=== PATIENT | female | born 1965 | race Caucasian/White ===

== ENCOUNTER 2016-11-25 13:03 | Emergency (ER) | payer BC ==
[~2016-11-25] VITALS: Ht 162.6 cm; Wt 80.7 kg
[~2016-11-25 13:03] MED LIST: ASPI81TA28 PO
[2016-11-25 13:06] VITALS: TEMP 36.7; Ht 162.6 cm; Wt 80.7 kg
[2016-11-25] MEDS ORDERED: LORA-741 PO (13:31)
[2016-11-25] MEDS ORDERED: SUCR1TAB29 PO (13:31)
[2016-11-25] MEDS ORDERED: PRLSR20 PO (13:31)
[2016-11-25 13:35] VITALS: O2SAT 97
[2016-11-25 13:49] LABS: BASO % 0.4 %; BASO ABS # 0.03 K/uL (0-0.2); COMPLETE YES; HEMATOCRIT 44.8 % (37-47); IG% 0.1 %; LYMPH % 21.8 %; LYMPH ABS # 1.58 K/uL (1.2-3.4); MEAN CELL VOLUME 85.5 fL (80-100); MEAN CORPUSCULAR HEMOGLOBIN 30.5 pg (25-34); MEAN CORPUSCULAR HGB CONC 35.7 g/dl (32-36); MONO % 4.8 %; NEUT % 69.9 %; PLATELET COUNT 239 K/uL (130-400); RED BLOOD COUNT 5.24 M/uL (4.2-5.4); WHITE BLOOD COUNT 7.26 K/uL (4.8-10.8)
--- NOTE | 2016-11-25 14:01 | DIAGNOSTIC IMAGING REPORT ---
CHEST ONE VIEW PORTABLE CLINICAL HISTORY: Chest pain. COMPARISON STUDY: Chest radiograph September 25, 2015. FINDINGS: Lung volumes are normal. There is no pneumothorax or pleural effusion. There is no consolidation to suggest pneumonia. Pulmonary vascularity is normal. Cardiomediastinal silhouette is normal. IMPRESSION: No acute cardiopulmonary findings. Electronically signed by: Wang Nascimento M.D. 11/25/2016 1:59 PM Dictated Date/Time: 11/25/2016 1:59 PM
[2016-11-25 14:06] LABS: ALT/SGPT 20 U/L (12-78); AST/SGOT 10 U/L (15-37); BLOOD UREA NITROGEN 13 mg/dl (7-18); BUN/CREATININE RATIO 16.6 (10-20); CALCIUM 9.1 mg/dl (8.5-10.1); CARBON DIOXIDE 25 mmol/L (21-32); CHLORIDE 110 mmol/L (98-107); CREATININE 0.81 mg/dl (0.60-1.20); GLUCOSE 99 mg/dl (70-99); POTASSIUM 3.6 mmol/L (3.5-5.1); SODIUM 143 mmol/L (136-145)
[2016-11-25 14:11] LABS: ALB/GLOB RATIO 1.3 (0.9-2); ALKALINE PHOSPHATASE 68 U/L (45-117)
--- NOTE | 2016-11-25 14:25 | EMERGENCY ROOM VISIT NOTE ---
History First contact with patient: 13:23 Chief Complaint: CHEST PAIN Stated Complaint: CHEST PAIN Nursing Triage Summary: Patient c/o mid sternal chest pain that she has had intermittently for 1 year. Denies pain at this time, has been treated for acid reflux but continues to have the pain. Pt states today she didn't have the "full pressure that I get. It just kind of grabbed me at 9 o'clock but it didn't last real long and it went into my back". Denies SOB, diaphoresis, but states sometimes she gets sweaty in the middle of the night with chest pain and occasionally is SOB but not linked to the chest pain. Pt denies taking anything for chest pain. History of Present Illness The patient is a 51 year old female who presents to the Emergency Room with complaints of intermittent chest pain for the past 1.5 years. The patient states that she has had a long history of occasional chest pain. She states the pain typically occurs at rest or at night and can last for a few minutes to a few hours. The pain is located in the center of her chest and feels like a pressure. The patient states that she had an episode of pain last night and had associated sweating with the pain. She reports that in the morning, she tends to feel weak. The patient was seen here one year ago for these symptoms and followed up with cardiology. She reports she had a stress test which was negative but did show increased heart rate with exercise. She was supposed to follow-up with cardiology but states that she canceled that appointment. She states that she has not seen her primary care provider, who has started her on medications for acid reflux. She has been taking these as prescribed but states there has been no change in her symptoms. The patient denies any symptoms at this time. She does report she has occasional palpitations at times. She has had a Holter monitor in 2005 which showed PACs but no other arrhythmias. She denies any shortness of breath, nausea, vomiting, radiation of the pain or syncopal episodes. She has a family history of heart disease, but not at a young age. She is a smoker. She denies history of hypertension or hyperlipidemia. Review of Systems A complete 10-point Review of Systems was discussed with the patient, with pertinent positives and negatives listed in the History of Present Illness. All remaining Review of Systems questions can be considered negative unless otherwise specified. Past Medical/Surgical History Surgical Problems: (1) Hx of tonsillectomy (2) Previous section Family History Cancer Diabetes mellitus Heart disease Hypertension Lung disease Social History Smoking Status: Never Smoker Alcohol Use: none Drug Use: none Marital Status: Housing Status: lives with family Occupation Status: unemployed Current/Historical Medications Scheduled Lorazepam (Ativan), 0.5 MG PO HS Omeprazole (Prilosec), 20 MG PO ACHS Sucralfate (Carafate), 1 GM PO HS Allergies Coded Allergies: Penicillins (Verified Allergy, Unknown, 11/25/16) Physical Exam Vital Signs Date Time Temp Pulse Resp B/P Pulse Ox O2 Delivery O2 Flow Rate FiO2 11/25/16 14:59 78 16 122/88 98 11/25/16 13:35 97 Room Air 11/25/16 13:23 70 11/25/16 13:11 98 11/25/16 13:06 36.7 78 17 139/88 99 Room Air Physical Exam VITALS: Vitals are noted on the nurse's note and reviewed by myself. Vital signs stable. GENERAL: This is a 51-year-old female, in no acute distress, nondiaphoretic, well-developed well-nourished. SKIN: Capillary reflex less than 2 seconds. HEENT: Normocephalic. PERRLA. EOMI. Nares patent. Mucous membranes moist. Neck is supple without nuchal rigidity. HEART: Regular rate and rhythm without murmurs gallops or rubs. LUNGS: Clear to auscultation bilaterally without wheezes, rales or rhonchi. NEURO: Patient was alert and oriented to person place and time. Medical Decision & Procedures ER Provider Diagnostic Interpretation: CHEST ONE VIEW PORTABLE CLINICAL HISTORY: Chest pain. COMPARISON STUDY: Chest radiograph September 25, 2015. FINDINGS: Lung volumes are normal. There is no pneumothorax or pleural effusion. There is no consolidation to suggest pneumonia. Pulmonary vascularity is normal. Cardiomediastinal silhouette is normal. IMPRESSION: No acute cardiopulmonary findings. Laboratory Results 11/25/16 13:30 Red Blood Count 5.24, Mean Corpuscular Volume 85.5, Mean Corpuscular Hemoglobin 30.5, Mean Corpuscular Hemoglobin Concent 35.7, Mean Platelet Volume 11.0, Neutrophils (%) (Auto) 69.9, Lymphocytes (%) (Auto) 21.8, Monocytes (%) (Auto) 4.8, Eosinophils (%) (Auto) 3.0, Basophils (%) (Auto) 0.4, Neutrophils # (Auto) 5.07, Lymphocytes # (Auto) 1.58, Monocytes # (Auto) 0.35, Eosinophils # (Auto) 0.22, Basophils # (Auto) 0.03 11/25/16 13:30 Test 11/25/16 13:30 White Blood Count 7.26 K/uL (4.8-10.8) Red Blood Count 5.24 M/uL (4.2-5.4) Hemoglobin 16.0 g/dL (12.0-16.0) Hematocrit 44.8 % (37-47) Mean Corpuscular Volume 85.5 fL (80-100) Mean Corpuscular Hemoglobin 30.5 pg (25-34) Mean Corpuscular Hemoglobin Concent 35.7 g/dl (32-36) Platelet Count 239 K/uL (130-400) Mean Platelet Volume 11.0 fL (7.4-10.4) Neutrophils (%) (Auto) 69.9 % Lymphocytes (%) (Auto) 21.8 % Monocytes (%) (Auto) 4.8 % Eosinophils (%) (Auto) 3.0 % Basophils (%) (Auto) 0.4 % Neutrophils # (Auto) 5.07 K/uL (1.4-6.5) Lymphocytes # (Auto) 1.58 K/uL (1.2-3.4) Monocytes # (Auto) 0.35 K/uL (0.11-0.59) Eosinophils # (Auto) 0.22 K/uL (0-0.5) Basophils # (Auto) 0.03 K/uL (0-0.2) RDW Standard Deviation 40.7 fL (36.4-46.3) RDW Coefficient of Variation 12.9 % (11.5-14.5) Immature Granulocyte % (Auto) 0.1 % Immature Granulocyte # (Auto) 0.01 K/uL (0.00-0.02) Anion Gap 8.0 mmol/L (3-11) Est Creatinine Clear Calc Drug Dose 85.4 ml/min Estimated GFR () 98.2 Estimated GFR (Non- 84.7 BUN/Creatinine Ratio 16.6 (10-20) Calcium Level 9.1 mg/dl (8.5-10.1) Total Bilirubin 0.4 mg/dl (0.2-1) Aspartate Amino Transf (AST/SGOT) 10 U/L (15-37) Alanine Aminotransferase (ALT/SGPT) 20 U/L (12-78) Alkaline Phosphatase 68 U/L (45-117) Total Creatine Kinase 71 U/L (26-192) Creatine Kinase MB < 0.5 ng/ml (0.5-3.6) Creatine Kinase MB Ratio (0-3.0) Troponin I < 0.015 ng/ml (0-0.045) Total Protein 7.5 gm/dl (6.4-8.2) Albumin 4.2 gm/dl (3.4-5.0) Globulin 3.3 gm/dl (2.5-4.0) Albumin/Globulin Ratio 1.3 (0.9-2) ECG Indication: chest pain Rate (beats per minute): 71 Rhythm: normal sinus Findings: T-wave inversion (Lateral), no acute ischemic change, no ectopy Change: no significant change Medical Decision Differential diagnosis includes acute coronary syndrome, pulmonary embolism, pneumothorax, pericarditis, myocarditis, endocarditis, anxiety, musculoskeletal pain, GERD, costochondritis, pneumonia, among others. The patient was evaluated as above. Labs were drawn and IV access was obtained. Imaging studies were performed and read by radiology as above. The patient remained on the lunchroom monitor throughout the duration of her stay. The patient is a 51-year-old female who presents today complaining of chest pain of greater than one year duration. I did review previous records. The patient was previously seen here for similar symptoms and had follow-up including stress test since then. She was supposed to follow-up with cardiology but canceled that appointment. Labs today revealed no leukocytosis, anemia or concerning electrolyte abnormality. Troponin 1 was negative. I did not repeat a troponin given the long duration of the patient's symptoms. EKG was interpreted by myself and showed a normal sinus rhythm without evidence of ischemia. Overall, the patient's history is not significantly concerning for cardiac disease. She is symptom-free at the time of my evaluation. I did recommend she continue to follow-up with her primary care provider and schedule another follow-up with her established diamond sander. She will return here for any new/concerning symptoms. Based on the patient's presentation, lab results, and imaging studies, I feel the patient is stable for outpatient treatment. The patient's case was reviewed with Dr. Shay, ED attending physician, who agreed with my assessment and treatment plan. Discharge instructions were reviewed with the patient. The patient verbalized understanding of my assessment and treatment plan and was discharged home in good condition. Impression Primary Impression: Substernal chest pain Departure Information Dispostion Home / Self-Care Condition GOOD Referrals Tere Nur M.D. (MEDICAL) (PCP) Isai Cabral D.O. Patient Instructions [facility] Additional Instructions You have been treated in the Emergency Department for your Chest Pain. Laboratory results and Imaging Studies have ruled out any acute cardiac or pulmonary cause of your chest pain. For pain control, you can use the following [id number] medicines (if >12 yo): - Regular strength (325mg/tab) Tylenol (acetaminophen) 2 tabs every 4-6 hours as needed. Do not exceed 12 tablets in a 24 hour period. Avoid taking more than 4 grams (4000 mg) of Tylenol per day. This includes any other sources of acetaminophen you may take on a regular basis. - Regular strength (200 mg/tab) Advil (ibuprofen) 1-2 tabs every 4-6 hours as needed. Do not exceed a dose of 3200 mg per day. You should schedule a follow-up appointment with your Primary Care Provider in 2 -3 days for further evaluation from today's Emergency Department visit. Call your diamond sander to schedule an appointment this week for follow-up. Return to the Emergency Department if your current symptoms worsen despite treatment course outlined above, or if you develop any of the following symptoms : worsening chest pain, associated jaw/arm pain, nausea, dizziness, shortness of breath, bloody cough, or fainting.
[2016-11-25 14:59] VITALS: BP 122/88; PULSE 78; O2SAT 98
== END 2016-11-25 15:00 | disposition home or self-care (01) ==
LOC: C.EDB 13:04 → C.EDC 15:00
DX: R07.2 Precordial pain (principal); K21.9 Gastro-esophageal reflux disease without esophagitis; Z79.899 Other long term (current) drug therapy; Z80.9 Family history of malignant neoplasm, unspecified; Z83.3 Family history of diabetes mellitus; Z82.49 Family history of ischemic heart disease and other diseases of the circulatory system; Z83.6 Family history of other diseases of the respiratory system

== ENCOUNTER 2017-01-29 06:48 | Emergency (ER) | payer BC ==
[~2017-01-29] VITALS: Ht 162.6 cm; Wt 83.9 kg
[~2017-01-29 06:48] MED LIST changes: -ASPI81TA28 PO; +LORA-741 PO; +PRLSR20 PO; +SUCR1TAB29 PO
[2017-01-29 06:51] VITALS: TEMP 36.6; Ht 162.6 cm; Wt 83.9 kg
[2017-01-29] MEDS ORDERED: MoRPHine SULFATE 4 MG/ML 1 ML CARP\\VIAL IV PRN (07:15)
[2017-01-29 07:25] VITALS: O2SAT 96
--- NOTE | 2017-01-29 07:32 | EMERGENCY ROOM VISIT NOTE ---
History First contact with patient: 07:01 Chief Complaint: CHEST PAIN Stated Complaint: BACK PAIN Nursing Triage Summary: chest pain on off for 1 1/2 yr being treated for gerd. Pain has kept her up for 4 nites. History of Present Illness The patient is a 51 year old female who presents to the Emergency Room with complaints of midsternal chest pain that started about midnight last night. Patient states the pain woke her up from sleep and has been constant since that time. She describes the pain as pressure with occasional sharp pains, midsternal, does not radiate, no exacerbating factors and it is not exertional, currently rates it as 4/10. She took 2 baby aspirin when the pain started. Associated symptoms of nausea, she denies vomiting, shortness of breath, dizziness, diaphoresis, racing heart, syncope. Patient notes that she has been dealing with this chest pain on and off for the past 1.5 years. The patient notes a stress test a year ago that she believes was negative. She has also had an endoscopy in June 2016 that she also believes was negative. She reports an cardiac CT that was done in November ordered by her olive packer Dr. Cabral that she says was negative, and has since been placed on a PPI and Carafate treatment for GERD, however she does not note any significant improvement in her symptoms since starting these medications. Of note, she was also started on PRN Ativan She denies any headaches, vision changes, neck pain, abdominal pain, diarrhea/constipation, or urinary symptoms. She does note that she quit smoking about 6 weeks ago. Review of Systems GENERAL: Denies fevers, chills, malaise, fatigue, unintentional weight changes. HEENT: Denies dizziness, visual problems, hearing loss, tinnitus. Denies difficulty swallowing or oral lesions. PULMONARY: Denies cough, shortness of breath, sputum production or hemoptysis. CARDIOVASCULAR: + Chest pain. Denies palpitations, dyspnea on exertion, orthopnea or peripheral edema. Denies syncope. Denies history of hypertension. GASTROINTESTINAL: + Nausea. Denies diarrhea, constipation, vomiting, or abdominal pain. GENITOURINARY: Denies dysuria, frequency, urgency or nocturia. NEUROLOGIC: Denies history of epilepsy, CVA, TIA or chronic headaches. MUSCULOSKELETAL: Denies history of joint tenderness/swelling. SKIN: Denies rashes or lesions. PSYCHIATRIC: Denies history of depression or mental illness. ENDOCRINE: Denies history of diabetes, thyroid disorders, abnormal hair growth or sexual dysfunction. Past Medical/Surgical History Surgical Problems: (1) Hx of tonsillectomy (2) Previous section Family History Cancer Diabetes mellitus Heart disease Hypertension Lung disease Social History Smoking Status: Former Smoker Alcohol Use: none Drug Use: none Marital Status: Housing Status: lives with family Occupation Status: unemployed Current/Historical Medications Scheduled Lorazepam (Ativan), 0.5 MG PO HS Omeprazole (Prilosec), 20 MG PO ACHS Sucralfate (Carafate), 1 GM PO HS Allergies Coded Allergies: Penicillins (Verified Allergy, Unknown, 11/25/16) Physical Exam Vital Signs Date Time Temp Pulse Resp B/P (MAP) Pulse Ox O2 Delivery O2 Flow Rate FiO2 01/29/17 10:40 67 16 130/81 95 01/29/17 09:56 64 01/29/17 09:12 60 16 125/78 96 Room Air 01/29/17 08:18 64 16 114/75 98 Room Air 01/29/17 07:37 71 16 139/86 98 Room Air 01/29/17 07:25 96 Room Air 01/29/17 07:25 65 16 171/96 96 Room Air 01/29/17 07:24 96 Room Air 01/29/17 07:04 68 01/29/17 06:51 36.6 66 16 140/92 97 Room Air Physical Exam CONSTITUTIONAL: No acute distress. Well appearing and well nourished. Alert and oriented X 4 with normal affect. HEENT: Normocephalic, atraumatic. Pupils equal, round and reactive to light, EOMI. TMs normal. Pharynx normal. Moist mucous membranes. NECK: Supple, full active range of motion without discomfort. RESPIRATORY: Clear to auscultation bilaterally with no wheezing, crackles, rhonchi or stridor. Equal expansion bilaterally. CARDIOVASCULAR: Regular rate and rhythm with no murmurs, rubs or gallops. Normal peripheral perfusion, 2+ pulses all 4 extremities. No edema. CHEST WALL: Normal contour, nontender to palpation, chest pain is not reproducible. No crepitus, no ecchymosis or abrasion, no rash. GASTROINTESTINAL: Soft, nontender, nondistended. Bowel sounds present in all quadrants. MUSCULOSKELETAL: Full range of motion of all joints without discomfort. INTEGUMENTARY: No rash or other significant dermatologic conditions noted. NEUROLOGIC: Cranial nerves II-XII grossly intact. No focal neurologic deficits noted. Medical Decision & Procedures ER Provider Diagnostic Interpretation: TWO VIEW CHEST CLINICAL HISTORY: Atypical chest pain.. FINDINGS: PA and lateral chest radiographs are compared to study dated 11/25/2016. The cardiomediastinal silhouette is unremarkable. The lungs and pleural spaces are clear. There is no pneumothorax. The bony thorax appears intact. IMPRESSION: No active disease in the chest. Laboratory Results 01/29/17 07:20 Red Blood Count 5.07, Mean Corpuscular Volume 85.8, Mean Corpuscular Hemoglobin 30.2, Mean Corpuscular Hemoglobin Concent 35.2, Mean Platelet Volume 10.3, Neutrophils (%) (Auto) 66.9, Lymphocytes (%) (Auto) 20.9, Monocytes (%) (Auto) 9.0, Eosinophils (%) (Auto) 2.7, Basophils (%) (Auto) 0.5, Neutrophils # (Auto) 3.65, Lymphocytes # (Auto) 1.14, Monocytes # (Auto) 0.49, Eosinophils # (Auto) 0.15, Basophils # (Auto) 0.03 01/29/17 07:20 Test 01/29/17 07:20 01/29/17 09:10 White Blood Count 5.46 K/uL (4.8-10.8) Red Blood Count 5.07 M/uL (4.2-5.4) Hemoglobin 15.3 g/dL (12.0-16.0) Hematocrit 43.5 % (37-47) Mean Corpuscular Volume 85.8 fL (80-100) Mean Corpuscular Hemoglobin 30.2 pg (25-34) Mean Corpuscular Hemoglobin Concent 35.2 g/dl (32-36) Platelet Count 229 K/uL (130-400) Mean Platelet Volume 10.3 fL (7.4-10.4) Neutrophils (%) (Auto) 66.9 % Lymphocytes (%) (Auto) 20.9 % Monocytes (%) (Auto) 9.0 % Eosinophils (%) (Auto) 2.7 % Basophils (%) (Auto) 0.5 % Neutrophils # (Auto) 3.65 K/uL (1.4-6.5) Lymphocytes # (Auto) 1.14 K/uL (1.2-3.4) Monocytes # (Auto) 0.49 K/uL (0.11-0.59) Eosinophils # (Auto) 0.15 K/uL (0-0.5) Basophils # (Auto) 0.03 K/uL (0-0.2) RDW Standard Deviation 39.2 fL (36.4-46.3) RDW Coefficient of Variation 12.4 % (11.5-14.5) Immature Granulocyte % (Auto) 0.0 % Immature Granulocyte # (Auto) 0.00 K/uL (0.00-0.02) Bedside Urine Test NEG (NEG) Anion Gap 7.0 mmol/L (3-11) Est Creatinine Clear Calc Drug Dose 94.1 ml/min Estimated GFR () 107.7 Estimated GFR (Non- 92.9 BUN/Creatinine Ratio 17.4 (10-20) Calcium Level 9.2 mg/dl (8.5-10.1) Total Bilirubin 0.5 mg/dl (0.2-1) Direct Bilirubin 0.1 mg/dl (0-0.2) Aspartate Amino Transf (AST/SGOT) 11 U/L (15-37) Alanine Aminotransferase (ALT/SGPT) 19 U/L (12-78) Alkaline Phosphatase 72 U/L (45-117) Total Protein 7.5 gm/dl (6.4-8.2) Albumin 4.1 gm/dl (3.4-5.0) Lipase 242 U/L (73-393) Bedside Troponin I < 0.030 ng/ml (0-0.045) Medications Administered Medications (Trade) Dose Ordered Sig/Guerda Route Start Time Stop Time Status Last Admin Dose Admin Morphine Sulfate (MoRPHine SULFATE INJ) 4 mg Q1H PRN IV 01/29/17 07:15 01/29/17 11:05 DC 01/29/17 07:32 4 MG Ondansetron HCl (Zofran Inj) 4 mg NOW STAT IV 01/29/17 07:39 01/29/17 07:40 DC 01/29/17 07:42 4 MG ECG Indication: chest pain Rate (beats per minute): 64 Rhythm: normal sinus Findings: nonspecific-ST abn (Inferior), no acute ischemic change, no ectopy Change: no significant change (11/25/2016) Medical Decision CC: Patient presenting with complaint of chest pain Interpretation of Labs: No leukocytosis, no anemia, no significant electrolyte abnormalities, normal renal function, normal liver enzymes. Negative troponin 2 at greater than 6 hours of constant chest pain. Differential Diagnosis: Includes, but not limited to acute coronary syndrome, pulmonary embolism, aortic dissection, pneumothorax, pericarditis, myocarditis, endocarditis, anxiety, musculoskeletal pain, GERD, costochondritis, pneumonia, among others. Medication Reconciliation: I attest that I have personally reviewed the patient' s current medication list. Vital signs review: I reviewed the patient's vital signs and interpret them as follows: T: Afebrile; BP: Hypertensive; HR: Within normal limits; RR: Within normal limits; Pulse Ox: Within normal limits on room air. Blood pressure screening: The patient was found to have an elevated blood pressure and was referred to their primary doctor for recheck and further treatment. Summary: Patient was evaluated at bedside, history of physical exam performed. She is alert and oriented in no acute distress. She relates constant chest pain since 12 AM with no resolution, currently 01/31. Heart and lung exam are unremarkable, no edema. I do not suspect PE. Very low risk by Wells criteria (unable to PERC out due to age). EKG reviewed at bedside, normal sinus rhythm with no acute ischemic changes, and unchanged when compared to previous EKG. Orders were placed at bedside for labs, UA, chest x-ray, EKG to evaluate for chest pain. Patient discussed with Dr. Arciniega, who agrees with my assessment and plan. I did request records from patient's olive packer, Dr. Cabral, along with recent coronary CT results. Review of records was performed, noting and negative CT coronary study on 2016. It does appear from review of her PCP and olive packer notes that her symptoms are more consistent with acid reflux/indigestion, and she has recently been placed on medications to treat this. Labs reviewed, unremarkable as noted above, specifically negative troponin studies to rule out ACS. Chest x-ray reviewed, unremarkable. Patient's pain resolved with medication. Patient reassessed multiple times throughout ED stay, she is much improved. She does note some persistent nausea with belching at times. I reviewed all results with patient and her , as well as discussed her previous records and need for her to continue following up. I do suspect the patient's symptoms are secondary to acid reflux issues. Patient does note that she is scheduled to see a fill plant operator in a few weeks. I urged her to keep this appointment. Patient was discharged home in stable condition and ambulatory. Impression Primary Impression: Chest pain Departure Information Dispostion Home / Self-Care Condition GOOD Referrals Tere Nur M.D. (MEDICAL) (PCP) Patient Instructions ED Chest Pain NonCardiac, [facility] Additional Instructions Continue to take your medications to treat your reflux. You may take Maalox or Mylanta as needed for symptoms of chest pain that may be caused by reflux. Keep your scheduled appointment with the fill plant operator in the upcoming weeks. Plan to follow-up with your PCP in the next few days for recheck. You should have your blood pressure rechecked, as it was elevated while you were in the ER today. Please return to the ER for worsening symptoms, including severe worsening or different type of chest pain, shortness of breath, persistent vomiting or vomiting up blood, blood in her stool or urine, severe dizziness or passing out , or any other concerns. Problem Qualifiers Primary Impression: Chest pain Chest pain type: other chest pain Qualified Codes: R07.89 - Other chest pain
[2017-01-29 07:33] LABS: BASO % 0.5 %; BASO ABS # 0.03 K/uL (0-0.2); COMPLETE YES; EOS % 2.7 %; HEMATOCRIT 43.5 % (37-47); LYMPH % 20.9 %; LYMPH ABS # 1.14 K/uL (1.2-3.4); MEAN CELL VOLUME 85.8 fL (80-100); MEAN CORPUSCULAR HEMOGLOBIN 30.2 pg (25-34); MEAN CORPUSCULAR HGB CONC 35.2 g/dl (32-36); MEAN PLATELET VOLUME 10.3 fL (7.4-10.4); NEUT % 66.9 %; PLATELET COUNT 229 K/uL (130-400); RED BLOOD COUNT 5.07 M/uL (4.2-5.4); WHITE BLOOD COUNT 5.46 K/uL (4.8-10.8)
[2017-01-29] MEDS ORDERED: ONDANSETRON INJ 2 MG/ML 2 ML VIAL IV STA (07:39)
[2017-01-29 07:49] LABS: BUN/CREATININE RATIO 17.4 (10-20); CALCIUM 9.2 mg/dl (8.5-10.1); CREATININE 0.75 mg/dl (0.60-1.20); POTASSIUM 3.5 mmol/L (3.5-5.1)
--- NOTE | 2017-01-29 08:06 | DIAGNOSTIC IMAGING REPORT ---
TWO VIEW CHEST CLINICAL HISTORY: Atypical chest pain.. FINDINGS: PA and lateral chest radiographs are compared to study dated 11/25/2016. The cardiomediastinal silhouette is unremarkable. The lungs and pleural spaces are clear. There is no pneumothorax. The bony thorax appears intact. IMPRESSION: No active disease in the chest. Electronically signed by: Geremias Mistry M.D. 01/29/2017 8:04 AM Dictated Date/Time: 01/29/2017 8:04 AM
[2017-01-29 10:40] VITALS: BP 130/81; PULSE 67; O2SAT 95
== END 2017-01-29 10:13 | disposition home or self-care (01) ==
LOC: C.EDB 06:49
DX: R07.89 Other chest pain (principal); Z80.9 Family history of malignant neoplasm, unspecified; Z83.3 Family history of diabetes mellitus; Z82.49 Family history of ischemic heart disease and other diseases of the circulatory system; Z83.6 Family history of other diseases of the respiratory system; Z87.891 Personal history of nicotine dependence; Z79.899 Other long term (current) drug therapy